=== PATIENT | female | born 1970 | race Caucasian/White ===

== ENCOUNTER 2016-07-24 14:03 | Emergency (ER) | payer OTHER ==
[2016-07-24] MEDS ORDERED: NS 1,000 ML IV ONE (14:16)
--- NOTE | 2016-07-24 14:20 | CPEKG ---
Heart Rate: 120 RR Interval: 500 P-R Interval: 124 QRSD Interval: 82 QT Interval: 320 QTC Interval: 453 P Rock: 73 QRS Rock: 83 T Wave Rock: -32 EKG Severity - OTHERWISE NORMAL ECG - EKG Impression: SINUS TACHYCARDIA Electronically Signed By: Mehdi Hunter 24-Jul-2016 14:38:22
[2016-07-24 14:29] VITALS: TEMP 98.2; O2SAT 98
[2016-07-24 14:36] LABS: % IMMATURE GRANULYOCYTES 0.5 % (0.0-1.1); ABSOLUTE IMMATURE GRANULOCYTES 0.06 10^3/uL (0.00-0.10); ADD DIFF? NO; ADD MORPH? NO; ADD SCAN? NO; ATYPICAL LYMPHOCYTE FLAG 0 (0-99); FRAGMENT RBC FLAG 0 (0-99); HEMATOCRIT 43.6 % (38.0-47.0); HEMOGLOBIN 15.2 g/dL (12.6-16.3); LEFT SHIFT FLG 0 (0-99); LIPEMIA HEMOLYSIS FLAG 90 (0-99); MEAN CELL HEMOGLOBIN 29.6 pg (27.9-34.1); MEAN CELL HEMOGLOBIN CONCENTR. 34.9 g/dL (32.4-36.7); MEAN CELL VOLUME 84.8 fL (81.5-99.8); MEAN PLATELET VOLUME 9.6 fL (8.7-11.7); PLATELET CLUMPS FLAG 0 (0-99); PLATELET COUNT 226 10^3/uL (150-400); RED BLOOD CELL COUNT 5.14 10^6/uL (4.18-5.33); RED CELL DISTRIBUTION WIDTH 12.7 % (11.5-15.2)
--- NOTE | 2016-07-24 14:36 | UCPHY ---
H & P Patient Type: New Chief Complaint Nursing Narrative: racing hr seen at on /ekg nl returned today/denies pain Source: Patient Exam Limitations: No limitations - Personal History LMP (Females 10-55): 1-7 Days Ago Current Tetanus/Diphtheria Vaccine: Yes - Medical/Surgical History Hx Asthma: No Hx Chronic Respiratory Disease: No Hx Diabetes: No Hx Cardiac Disease: No Hx Renal Disease: No Hx Cirrhosis: No Hx Alcoholism: No Hx HIV/AIDS: No Hx Splenectomy or Spleen Trauma: No Other PMH: mri/hip - Family History Significant Family History: No pertinent family hx, Other (No family history of dysrhythmias, DVT, PE, thyroid disease) - Social History Smoking Status: Never smoked Alcohol Use: Rarely Drug Use: None Time Seen by Provider: 07/24/16 14:15 HPI/ROS: This patient complains of a racing heart that has been twice her usual heart rate for the past 4-5 days. She explains that usually her resting pulse is 60 or 70. She started noticing or feeling of a racing heart and checked her pulse noting that it was typically running in the 120s. 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 She did go to [facility] and [place] last -6 days prior to arrival had a normal EKG at that time. No other workup was done. She came in for recheck due to ongoing symptoms despite good hydration. She notes no clear exacerbating or alleviating factors for symptoms. She has never had this before the past week. ROS: No recent fevers. She has no other significant constitutional symptoms. HEENT: She does report onset of nasal congestion over the past couple days she attributes to a cold. No other complaints. Pulmonary: She denies shortness of breath. Occasional cough that she attributes to a postnasal drip. Cardiovascular: She reports mild chest pain to the left upper chest that she noted over the past 24 hours that she thinks is a rib. The pain radiates from anterior chest to to the left upper back as well. She denies any leg swelling or pain. GI: No nausea or vomiting. No change in her stool which she reports is normal : Last menstrual period was normal timing a week ago. She reports heavy menses but short menses and does not feel there has been any recent significant change in the amount that she bleeds. 10 point ROS is otherwise negative. (Mehdi Hunter) - Social History Additional Social History: Her father 1 month ago. She reports he was ill for sometime prior to his . (Mehdi Hunter) - Physical Exam Exam: General Appearance: Pleasant 45-year-old female he Alert, no distress. Eyes: Pupils equal and round no pallor or injection. ENT, Mouth: Mucous membranes moist. Respiratory: There are no retractions, lungs are clear to auscultation. Cardiovascular: Tachycardic with no murmur gallop rub. No JVD. No leg edema or calf tenderness Gastrointestinal: Abdomen is soft and nontender, no masses, bowel sounds normal. Neurological: Alert with no focal deficits Skin: Warm and dry, no rashes. Musculoskeletal: Neck is supple nontender. Extremities are symmetrical, full range of motion. Psychiatric: Mood and affect are normal DIFFERENTIAL DIAGNOSIS: After history and physical exam differential diagnosis was considered for grieving with anxiety (though she denies this), dehydration, PE, myocarditis, hyperthyroidism, anemia, pneumonia (Mehdi Hunter) Constitutional: Initial Vital Signs Temperature (C) 36.8 C 07/24/16 14:07 Heart Rate 124 H 07/24/16 14:07 Respiratory Rate 22 H 07/24/16 14:07 Blood Pressure 147/75 H 07/24/16 14:07 O2 Sat (%) 98 07/24/16 14:07 O2 Delivery Mode Room Air Allergies/Adverse Reactions: No Known Allergies Allergy (Unverified 07/24/16 14:07) Home Medications: Medication Instructions Recorded NK [No Known Home Meds] 07/24/16 Medical Decision Making - Diagnostics EKG Interpretation: 12 lead EKG performed at 16 reveals sinus tachycardia 120 Intervals: Normal throughout ST segments: Normal throughout [place]: Normal throughout Overall assessment: sinus tachycardia at 120 (Mehdi Hunter) Imaging: CT angiogram of chest: No evidence of pulmonary embolism, dissection, pneumothorax, pneumonia or other pathology. Results were discussed with staff radiologist Dr. Lokesh Rockwell. (Radha Plascencia) ED Course/Re-evaluation: IV normal saline bolus Monitor Aspirin 324 chewed Discussion: Patient with sinus tachycardia and mild chest discomfort, benign EKG with workup pending. She appears clinically well despite her tachycardia. D-dimer is elevated in this patient. Discussed this finding with her and explained the plan for CT angio. She is comfortable with this plan at 3:25 p.m. she reports minimal chest discomfort at 2 or 09/13. I discussed this case with Dr. Plascencia at 3:[address] angio pending. ( Mehdi Hunter) I took over care of this patient at 3:[address] Hunter as noted on history of present illness. We are awaiting a CT angiogram of the chest to evaluate for possible pulmonary embolism. 4:25 p.m., patient re-evaluated. She is resting comfortably at this time. I discussed the results of her CT chest as well as her blood work with her. We are still awaiting results of her thyroid study. She remains tachycardic with a sinus tachycardia 110-115 on the monitor. She denies any significant pain at this time. I discussed admission with her for observation and further evaluation by the hospitalist service. She does not want to be admitted at this time. 4:35 p.m., patient re-evaluated. TSH is within normal limits. Results of this study were discussed with her. shipping & receiving lead at this time sinus tachycardia with ventricular rate of 108. She denies any chest pain or shortness of breath. I again discussed admission. She does not want to be admitted. She is requesting discharge. She does have follow-up with her primary care physician tomorrow. I will also provide her a referral to Cardiology. She has been instructed not to drink any caffeinated beverages or other energy drinks to get plenty of rest and keep herself well hydrated. Return to emergency department precautions were thoroughly reviewed with her. All of her questions were answered. She was discharged in good condition. (Radha Plascencia) - Data Points Laboratory Results: Laboratory Results 07/24/16 14:30 07/24/16 14:30 07/24/16 14:30 WBC 11.11 H 10^3/uL (3.80-9.50) RBC 5.14 10^6/uL (4.18-5.33) Hgb 15.2 g/dL (12.6-16.3) Hct 43.6 % (38.0-47.0) MCV 84.8 fL (81.5-99.8) MCH 29.6 pg (27.9-34.1) MCHC 34.9 g/dL (32.4-36.7) RDW 12.7 % (11.5-15.2) Plt Count 226 10^3/uL (150-400) MPV 9.6 fL (8.7-11.7) Neut % (Auto) 83.9 H % (39.3-74.2) Lymph % (Auto) 9.9 L % (15.0-45.0) [place] % (Auto) 4.6 % (4.5-13.0) Eos % (Auto) 0.8 % (0.6-7.6) Baso % (Auto) 0.3 % (0.3-1.7) Nucleat RBC Rel Count 0.0 % (0.0-0.2) Absolute Neuts (auto) 9.32 H 10^3/uL (1.70-6.50) Absolute Lymphs (auto) 1.10 10^3/uL (1.00-3.00) Absolute Monos (auto) 0.51 10^3/uL (0.30-0.80) Absolute Eos (auto) 0.09 10^3/uL (0.03-0.40) Absolute Basos (auto) 0.03 10^3/uL (0.02-0.10) Absolute Nucleated RBC 0.00 10^3/uL (0-0.01) Immature Gran % 0.5 % (0.0-1.1) Immature Gran # 0.06 10^3/uL (0.00-0.10) D-Dimer 1.06 H ug/mLFEU (0.00-0.50) Sodium 139 mEq/L (134-144) Potassium 4.0 mEq/L (3.5-5.2) Chloride 101 mEq/L (97-110) Carbon Dioxide 25 mEq/l (22-31) Anion Gap 13 mEq/L (8-16) BUN 9 mg/dL (7-23) Creatinine 0.8 mg/dL (0.6-1.0) Estimated GFR > 60 Glucose 97 mg/dL (70-100) Calcium 9.5 mg/dL (8.5-10.4) Troponin I < 0.012 ng/mL (0-0.034) TSH Cancelled Medications Given: Discontinued Medications Aspirin (Aspirin) 324 mg PO EDNOW ONE Stop: 07/24/16 14:40 Last Admin: 07/24/16 14:45 Dose: 324 mg Sodium Chloride (Ns) 1,000 mls @ 0 mls/hr IV ONCE ONE PRN Reason: Wide Open Stop: 07/24/16 14:17 Last Admin: 07/24/16 14:30 Dose: 1,000 mls Departure - Departure Disposition: Home, Routine, Self-Care Clinical Impression: Chest discomfort, Tachycardia Condition: Good Instructions: Tachycardia (ED), Chest Pain (ED) Additional Instructions: Read and follow provided instructions. Follow-up with your primary care physician As scheduled tomorrow for re- evaluation. Get plenty of rest, keep yourself well hydrated and avoid any caffeinated beverages or other energy drinks as discussed. I have also provided you with a referral to a beam saw operator. Return to the emergency department immediately for palpitations, worsening chest pain, shortness of breath or any other serious concerns. Referrals: NONE *PRIMARY CARE P,. [Primary Care Provider] - As per Instructions Acosta Doss MD [Medical Doctor] - As per Instructions - PQRS PQRS Measurement: NA (Mehdi Hunter) Not applicable. (Radha Plascencia)
[2016-07-24] MEDS ORDERED: ASPIRIN 81 MG CHEWABLE TAB PO ONE (14:39)
[2016-07-24 14:52] LABS: ANION GAP 13 mEq/L (8-16); CALCIUM 9.5 mg/dL (8.5-10.4); CARBON DIOXIDE 25 mEq/l (22-31); CHLORIDE 101 mEq/L (97-110); CREATININE 0.8 mg/dL (0.6-1.0); GLOMERULAR FILTRATION RATE > 60; GLUCOSE 97 mg/dL (70-100); SODIUM 139 mEq/L (134-144)
[2016-07-24 15:14] LABS: TROPONIN I < 0.012 ng/mL (0-0.034)
[2016-07-24] MEDS ORDERED: IOPAMIDOL (ISOVUE-370) 150 ML BTL IV ONE (15:16)
--- NOTE | 2016-07-24 16:42 | CT ---
CT Pulmonary Arteriogram HISTORY: Shortness of breath, mild tachycardia, D-dimer of 1.1. TECHNIQUE: The patient received 90 mL of Isovue-370 intravenously, given by automated machine injecto r. Multidetector helical CT was performed through the chest using dose reduction technology. I ivonne lated imaging data at the independent 3-D computer workstation. FINDINGS: Lungs are clear and there is no pleural effusion. No pulmonary masses are found. Heart and pulmonary vessels are normal. No filling defects are found within pulmonary arteries. The thoracic ao rtic arch has typical 3 vessel branching anatomy, with no evidence of aneurysm or dissection. IMPRESSION: Normal. I telephoned results to Dr. Plascencia at 1625 hours.
[2016-07-24 17:01] VITALS: BP 125/90; PULSE 109; RESP 16
== END 2016-07-24 16:45 | disposition home or self-care (01) ==
LOC: CED 14:03
DX: R00.0 Tachycardia, unspecified (principal)
CPT/HCPCS: 71275-PO; 80048-PO; 84443-PO; 84484-PO; 85025-PO; 85378-PO; 93010-PO; 96360-PO; 99205-PO; G0463-PO; Q9967